=== PATIENT | female | born 1970 ===

== ENCOUNTER → 2020-11-25 | Outpatient (CLI) | payer OTHER ==
--- NOTE | 2020-11-25 11:19 | Diagnostic Imaging Report ---
PA and lateral chest at 1026 hours. INDICATION: Lupus. There are no prior studies available for comparison. FINDINGS: The heart size is within normal limits. The lungs are clear. There is no evidence for failure, pneumonia or for pleural effusion. The mediastinum is not widened. The osseous structures are intact. The liver shadow does seem prominent. There also appears to have been a prior cholecystectomy. IMPRESSION: There is no evidence for an acute cardiopulmonary abnormality. Dictated by: Dictated on workstation # [id number]
== END ==
LOC: RAD FS 10:06
PROVIDERS: ATTEND Internal Medicine Rheumatology
DX: M32.19 Other organ or system involvement in systemic lupus erythematosus (principal)
CPT/HCPCS: 71046

== ENCOUNTER → 2022-11-08 | Outpatient (CLI) | payer OTHER ==
--- NOTE | 2022-11-08 20:32 | Diagnostic Imaging Report ---
PROCEDURE: MR imaging cervical spine without contrast. TECHNIQUE: Multiplanar, multisequence MR imaging of the cervical spine was performed without contrast. INDICATION: Neck pain chronic in nature. EXAMINATION: Cervical spine MRI without contrast 11/08/2022 FINDINGS: Prominent fluid noted about the cerebellum slightly right paracentrally of uncertain etiology. Dedicated imaging of the brain could provide better characterization as clinically indicated. Alignment of the spine is preserved with no fractures or subluxations. Visualized cord signal is maintained. C2-C3: Unremarkable. C3-C4: There is mild narrowing of the right neural foramen. Central canal and left neural foramen patent. C4-C5: There is a small central disc protrusion. There is no significant central stenosis. Neural foramina patent. C5-C6: There is disc desiccation with minimal broad-based bulging disc material. This causes mild central stenosis. Neural foramina patent. C6-C7: There is disc desiccation. No significant central or neural foraminal stenosis. C7-T1: Bilateral perineural cysts seen at the neural foramina. No central or neural foraminal stenosis. Prevertebral soft tissues unremarkable. IMPRESSION: 1. Areas of mild degenerative disease as detailed above with mild central narrowing at the C5-C6 level. No cord compression. 2. Nonspecific prominent fluid about the cerebellum. This could be due to atrophy of the adjacent structures but if clinically warranted MRI of the brain could better characterize. Dictated by: Dictated on workstation # [id number]
== END ==
LOC: RAD 14:32
PROVIDERS: ATTEND Nurse Practitioner
DX: M50.122 Cervical disc disorder at C5-C6 level with radiculopathy (principal); M50.123 Cervical disc disorder at C6-C7 level with radiculopathy; M48.02 Spinal stenosis, cervical region
CPT/HCPCS: 72141